=== PATIENT | male | born 1995 | race Caucasian/White ===

== ENCOUNTER → 2016-09-01 | Outpatient (CLI) | payer OTHER ==
[2016-09-01 15:45] LABS: DAYS OF ABSTINENCE 4; METHOD OF COLLECTION MASTURBATION; SEMEN TIME OF COLLECTION 1500; TYPE OF SPECIMEN CONTAINER STERILE CUP
[2016-09-01 15:46] LABS: SEMEN COLOR YELLOW (GRY/GRYWHTE)
[2016-09-01 15:47] LABS: SPERM VIABILITY STAIN NOT INDICATED % (>58%)
== END | disposition home or self-care (01) ==
LOC: MERGE 15:00 → C.LAB 15:16
PROVIDERS: ATTEND Urology
DX: N46.9 Male infertility, unspecified (principal)